=== PATIENT | male | born 1965 | race Asian ===

== ENCOUNTER 2016-09-19 15:07 | Emergency (ER) | payer OTHER ==
[2016-09-19 15:17] VITALS: BP 169/70; PULSE 94; TEMP 98.2; BMI 32.1
[2016-09-19] MEDS ORDERED: ACETAMINOPHEN 500 MG TABLET (FP) PO ONE (16:51)
[2016-09-19] MEDS ORDERED: ACETAMINOPHEN 500 MG TABLET (FP) ONE (16:54)
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
== END 2016-09-19 20:18 | disposition home or self-care (01) ==
LOC: JERFT 15:07 → SUPCPDRO 15:07 → JERFT 20:18
DX: S02.32XA Fracture of orbital floor, left side, initial encounter for closed fracture (principal); S02.2XXA Fracture of nasal bones, initial encounter for closed fracture; G44.319 Acute post-traumatic headache, not intractable; Y04.2XXA Assault by strike against or bumped into by another person, initial encounter; Y93.89 Activity, other specified; Y92.488 Other paved roadways as the place of occurrence of the external cause; I10 Essential (primary) hypertension; E11.9 Type 2 diabetes mellitus without complications; Z79.4 Long term (current) use of insulin; Z79.84 Long term (current) use of oral hypoglycemic drugs; E78.00 Pure hypercholesterolemia, unspecified; I69.851 Hemiplegia and hemiparesis following other cerebrovascular disease affecting right dominant side; Z87.19 Personal history of other diseases of the digestive system
CPT/HCPCS: 70450-TC; 70486-TC; 99281-25